=== PATIENT | male | born 1970 | race Caucasian/White ===

== ENCOUNTER 2021-11-02 09:44 | Emergency (ER) | payer SELFPAY ==
[~2021-11-02] VITALS: Ht 185.4 cm; Wt 100.0 kg
[2021-11-02] VITALS (9 sets, daily range): BP systolic 103–144; BP diastolic 55–92
[2021-11-02 10:40] LABS: HEMATOCRIT 44.3 % (39.0-50.0); HEMOGLOBIN 14.7 g/dl (14.0-18.0); IMMATURE GRANULOCYTES 0.5 % (0.0-5.0); MEAN CELL VOLUME 87.9 fL CALC (80.0-100.0); MEAN CORPUSCULAR HGB 29.2 pG CALC (26.0-32.0); MEAN CORPUSCULAR HGB CONC 33.2 g/dL CAL (32.0-36.0); NEUT# 17.41 thou/uL (1.82-7.42); RED BLOOD COUNT 5.04 mill/uL (4.70-6.10); RED CELL DISTRI WIDTH 12.2 % (11.5-15.5)
[2021-11-02 10:59] LABS: ALKALINE PHOSPHATASE 81 u/l (38-126); ANION GAP 15 (6-22 (CALC)); BILIRUBIN, TOTAL 2.3 mg/dL (0.0-1.4); BUN 12 mg/dL (9-20); BUN/CREATININE RATIO 13 (12-20 (CALC)); CARBON DIOXIDE 28 mmol/l (22-30); CHLORIDE 97 mmol/l (95-108); CREATININE 0.9 mg/dL (0.7-1.3); GFR FOR AFR.AMER. > 60 ML/MIN (>=60 (CALC)); GFR OTHER RACES > 60 ML/MIN (>=60 (CALC)); POTASSIUM 3.8 mmol/l (3.5-5.1); SGOT/AST 43 u/l (17-59); SODIUM 136 mmol/l (137-146); TOTAL PROTEIN 7.4 g/dL (6.3-8.2)
[2021-11-02 11:01] LABS: URINE BLOOD DIPSTICK MODERATE (NEGATIVE); URINE COLOR ORANGE; URINE GLUCOSE - DIPSTICK NEGATIVE (NEGATIVE); URINE KETONE TRACE mg/dL (NEGATIVE); URINE LEUK ESTERASE NEGATIVE (NEGATIVE); URINE PH 5.5 (4.5-8.0); URINE PROTEIN - DIPSTICK 100 mg/dL (NEG-TRACE); URINE SPECIFIC GRAVITY >=1.030
[2021-11-02 11:11] LABS: URINE BILIRUBIN - DIPSTICK MODERATE (NEGATIVE); URINE NITRITE - DIPSTICK POSITIVE (Negative)
[2021-11-02 11:15] LABS: URINE WBC 20-50 WBC/hpf (0-5)
[2021-11-02 11:16] LABS: URINE BACTERIA FEW hpf; URINE MUCUS FEW hpf (NONE-FEW); URINE RBC 0-2 RBC/hpf (0-5); URINE TRANSITIONAL EPI. CELLS FEW hpf
[2021-11-02 11:17] LABS: URINE HYALINE CAST FEW lpf (NONE-RARE)
[2021-11-02] MEDS ORDERED: CEPHALEXIN500 M1 PO (14:03)
[2021-11-02] MEDS ORDERED: BACTRIM DS1 TAB PO (14:03)
== END 2021-11-02 14:54 | disposition left against medical advice (07) | DRG 872 ==
LOC: ED 09:44
PROVIDERS: Family Medicine
PROC: 0H96XZZ Drainage of Back Skin, External Approach (ICD-10-PCS; principal; 2021-11-02)
DX: A41.9 Sepsis, unspecified organism (principal); L03.312 Cellulitis of back [any part except buttock and flank]; N39.0 Urinary tract infection, site not specified; B95.61 Methicillin susceptible Staphylococcus aureus infection as the cause of diseases classified elsewhere; Z91.19 Patient's noncompliance with other medical treatment and regimen; Z20.822 Contact with and (suspected) exposure to COVID-19
CPT/HCPCS: Q9967